=== PATIENT | female | born 1940 | race American Indian/Alaskan Native ===

== ENCOUNTER 2019-12-03 13:55 | Emergency (ER) | payer SELFPAY ==
--- NOTE | 2019-12-03 14:48 | Event Note ---
ED Screening Note ED Screening Note: Ms Quintanilla is a 79 yo female who presents with left shoulder pain after fall. She tripped while stepping down off a curb. No other injuries. No head trauma. This initial assessment/diagnostic orders/clinical plan/treatment(s) is/are subject to change based on patients health status, clinical progression and re- assessment by fellow clinical providers in the ED. Further treatment and workup at subsequent clinical providers discretion. Patient/guardian urged not to elope from the ED as their condition may be serious if not clinically assessed and managed. Initial orders include:
[2019-12-03 14:51] VITALS: BP 153/70
--- NOTE | 2019-12-03 15:41 | XRay Report ---
LEFT SHOULDER INDICATION / CLINICAL INFORMATION: left shoulder pain COMPARISON: None available. FINDINGS: BONES / JOINT(S): There is a suspected comminuted minimally displaced fracture involving the left hum eral greater tuberosity. No evidence of glenohumeral dislocation. SOFT TISSUES: No significant abnormality. ADDITIONAL FINDINGS: None. IMPRESSION: Suspected comminuted minimally displaced fracture involving the left humeral greater tuberosity. Signer Name: Javed Malave MD Signed: 12/03/2019 3:36 PM Workstation Name: [id number]
[2019-12-03] MEDS ORDERED: traMADol 50 MG TAB PO ONE (16:01)
--- NOTE | 2019-12-03 16:01 | Emergency Department Report ---
Upper Extremity - HPI Chief Complaint: Shoulder Injury Stated Complaint: FALL/LEFT SHOULDER PAIN Upper Extremity: Left Shoulder Occurred When: Today Mechanism: Fall Severity: moderate Symptoms: Yes Pain with Movement, Yes Limited Range of Movement, No Deformity, No Numbness, No Weakness, No Swelling, No Bruising/Ecchymosis, No Laceration or Abrasion Other History: 79 yo female who injured left shoulder, fell while stepping down curb at [employer]. ED Review of Systems ROS: Stated complaint: FALL/LEFT SHOULDER PAIN Other details as noted in HPI Constitutional: denies: fever, malaise Musculoskeletal: arthralgia Neurological: denies: numbness, paresthesias ED Past Medical Hx - Past Medical History Previous Medical History?: Yes Hx Hypertension: Yes - Surgical History Past Surgical History?: Yes Additional Surgical History: Knee replacements - Social History Smoking Status: Never Smoker Substance Use Type: None - Medications Home Medications: Home Medications Medication Instructions Recorded Confirmed Last Taken Type traMADoL [Ultram 50 MG tab] 50 mg PO Q6HR PRN #15 tablet 12/03/19 Unknown Rx Upper Extremity Exam - Exam General: Vital signs noted. No distress. Alert and acting appropriately. Head and Torso: No HEENT Abnormality, No Neck Tenderness Shoulder Exam: Yes Shoulder Tenderness, Yes Normal Range of Motion in Shoulder (hesitant), No Clavicle Tenderness, No Shoulder Deformity, No AC Joint Tenderness Arm Exam: No Arm/Humerus Tenderness, No Arm Deformity Elbow: No Elbow Tenderness, No Normal Range of Motion in Elbow, No Elbow Deformity Forearm: No Forearm Tenderness, No Forearm Deformity, No Pain with Pronation, No Pain with Supination Wrist: Yes Normal ROM in Wrist, No Wrist Tenderness, No Wrist Deformity, No Snuffbox Tenderness, No Pain with Axial Thumb Compression Hand: Yes Normal ROM in Digit(s), No Hand Tenderness, No Hand Deformity, No Digit Tenderness, No Digit(s) Deformity CMS Exam: Yes Normal Distal Pulses, Yes Normal Capillary Refill, Yes Normal Distal Sensation, No Broken Skin ED Course Vital Signs 12/03/19 14:49 Temperature 98.2 F Pulse Rate 57 L Respiratory 18 Rate Blood Pressure 153/70 O2 Sat by Pulse 100 Oximetry ED Medical Decision Making - Radiology Data Radiology results: report reviewed left shoulder greater tuberosity fracture comminuted - Medical Decision Making closed fx of the left humeral greater tuberosity. sling, rx: tramadol referred to ortho for 1-2 week f/u full fracture care provided. Critical care attestation.: If time is entered above; I have spent that time in minutes in the direct care of this critically ill patient, excluding procedure time. ED Disposition Clinical Impression: Greater tuberosity of humerus fracture Disposition: TO HOME OR SELFCARE Is pt being admited?: No Does the pt Need Aspirin: No Condition: Stable Instructions: Arm Fracture in Adults (ED) Prescriptions: traMADoL [Ultram 50 MG tab] 50 mg PO Q6HR PRN #15 tablet PRN Reason: Pain Referrals: CARLA ROACH MD [Staff Physician] - 7-10 days
== END 2019-12-03 16:25 | disposition home or self-care (01) ==
LOC: ED 13:55
DX: S42.252A Displaced fracture of greater tuberosity of left humerus, initial encounter for closed fracture (principal); I10 Essential (primary) hypertension; Z98.890 Other specified postprocedural states; W18.31XA Fall on same level due to stepping on an object, initial encounter; Y93.89 Activity, other specified; Y92.89 Other specified places as the place of occurrence of the external cause; Y99.8 Other external cause status